=== PATIENT | female | born 1960 | race Caucasian/White ===

== ENCOUNTER 2019-09-09 14:11 | Emergency (ER) | payer MEDICARE, SELFPAY ==
[2019-09-09] VITALS (35 sets, daily range): BP systolic 82–151; BP diastolic 49–116; PULSE 57–104; RESP 16–32; TEMP 36.3; O2SAT 87–100
[2019-09-09] MEDS: HYDROmorphone 2 MG/ML VIAL ×3 (14:50→16:30)
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
[2019-09-09] MEDS: Normal Saline 1,000 ML 1000 ML IV ×2 (15:00→17:00)
[2019-09-09 15:23] LABS: Abs Immature Grans 0.02 k/cumm (0.0-0.09); Absolute Basophil Count 0.06 k/cumm (0.0-0.2); Absolute Eosinophil Count 0.06 k/cumm (0.0-0.7); Absolute Lymphocyte Count 2.42 k/cumm (1.2-3.4); Absolute Monocyte Count 0.72 k/cumm (0.11-0.7); Absolute Neutrophil Count 6.23 k/cumm (1.2-6.7); Basophils % 0.6; Eosinophils % 0.6; HCT 42.7 % (36.0-46.0); HGB 14.4 g/dL (12.0-15.5); Immature Grans % 0.2 %; Lymphocytes % 25.4; Mean Corp. HGB Concentration 33.7 g/dL (32.0-36.0); Mean Corpuscular Hemoglobin 28.8 pg (27.0-33.0); Mean Corpuscular Volume 85.4 fL (80-95); Mean Platelet Volume 10.6 fL (8.0-11.0); Monocytes % 7.6; Neutrophils % 65.6; Platelet Count 349 x1000/uL (130-400); RBC Distribution Width 13.2 % (11.7-14.6); White Blood Cell Count 9.51 k/cumm (4.4-10.8)
[2019-09-09 15:35] LABS: ALT 18 U/L (14-59); AST 19 U/L (15-37); Albumin 4.9 g/dL (3.4-5.0); Alkaline Phosphatase 93 U/L (46-116); Anion Gap 14.9 mmol/L (3-11); BUN 10 mg/dL (7-18); Bilirubin, Total 1.1 mg/dL (0.2-1.0); CO2 25.1 mmol/L (21.0-32.0); CREATININE 0.85 mg/dL (0.55-1.02); Calcium 9.4 mg/dL (8.5-10.1); Chloride 101 mmol/L (98-107); Glucose 91 mg/dL (74-106); Potassium 3.6 mmol/L (3.5-5.1); Sodium 141 mmol/L (136-145); Total Protein 8.7 g/dL (6.4-8.2)
[2019-09-09] MEDS: Omnipaque 350 MG/ML 100 ML BTL IJ (16:05)
[2019-09-09] MEDS: Normal Saline - Diluent 50 ML VIAL IV (16:06)
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
[2019-09-09] MEDS: Ondansetron 4 MG/2 ML VIAL (16:30)
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
--- NOTE | 2019-09-09 17:00 | DI.VRAD_ITS ---
PROCEDURE INFORMATION: Exam: XR Right Forearm Exam date and time: 09/09/2019 3:48 PM Age: 59 years old Clinical indication: Other: S/P fall, R/O acute fracture TECHNIQUE: Imaging protocol: XR Right forearm. Views: 2 views. COMPARISON: CR XR HUMERUS RT 09/09/2019 3:36 PM FINDINGS: Bones/joints: There is a curvilinear fragment adjacent to the distal humerus, radial aspect, on series 3, image 1. This may represent the sequela of older trauma or degenerative change. However, correlation with concern for acute avulsive injury in this region suggested. Soft tissues: No unusual soft tissue calcifications. IMPRESSION: 1. There is a curvilinear fragment adjacent to the distal humerus, radial aspect, on series 3, image 1. This may represent the sequela of older trauma or degenerative change. However, correlation with concern for acute avulsive injury in this region suggested. Dictated and Authenticated by: Zohreh Chisholm MD. Ordering:NATE Correa MD
[2019-09-09] MEDS: HYDROmorphone 2 MG/ML VIAL 0.5 MG IVP (17:15)
[2019-09-09] MEDS: ACETAMINOPHEN 1,000 MG/100 ML BTL 400 MG IVPB (17:15)
[2019-09-09] MEDS: Ondansetron 4 MG/2 ML VIAL IVP (17:15)
--- NOTE | 2019-09-09 18:37 | DI.VRAD_ITS ---
PROCEDURE INFORMATION: Exam: XR Right Elbow Exam date and time: 09/09/2019 6:21 PM Age: 59 years old Clinical indication: Other: Pain, tenderness TECHNIQUE: Imaging protocol: XR Right elbow. Views: 3 or more views. COMPARISON: CR XR FOREARM RT 09/09/2019 3:42 PM FINDINGS: Bones/joints: The previously noted curvilinear bony fragment along the distal humerus, radial aspect, is not appreciated on this study which may be secondary to differences in positioning. No displaced fracture identified. Series 2, image 1 demonstrates linear lucencies in the distal humerus, ulnar epicondylar region, which are favored to be related to overlying clothing artifact. However, correlation with concern for fracture in this region suggested. Soft tissues: No posterior fat pad sign is seen. There is an up lifted appearance to the anterior fat pad for which an effusion is possible. No unusual soft tissue calcifications. IMPRESSION: 1. No displaced fracture identified. Series 2, image 1 demonstrates linear lucencies in the distal humerus, ulnar epicondylar region, which are favored to be related to overlying clothing artifact. However, correlation with concern for fracture in this region suggested. 2.The previously noted curvilinear bony fragment along the distal humerus, radial aspect, is not appreciated on this study which may be secondary to differences in positioning. 3. No posterior fat pad sign is seen. There is an uplifted appearance to the anterior fat pad for which an effusion is possible. If symptoms remain concerning, CT scan would be beneficial. Dictated and Authenticated by: Zohreh Chisholm MD. Ordering:PATRICIA Alicea MD
[2019-09-09] MEDS: Ketorolac 30 MG/ML VIAL (18:40)
[2019-09-09] MEDS: Lidocaine 5% Patch 1 PATCH TP (19:18)
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
== END 2019-09-09 20:20 | disposition home or self-care (01) ==
PROVIDERS: Physician Assistant; Emergency Provider Student in an Organized Health Care Education/Training Program; PCP Internal Medicine
DX: S42.291A Other displaced fracture of upper end of right humerus, initial encounter for closed fracture (principal); X58.XXXA Exposure to other specified factors, initial encounter; M25.521 Pain in right elbow; V86.52XA Driver of snowmobile injured in nontraffic accident, initial encounter; Y93.29 Activity, other involving ice and snow; R55 Syncope and collapse
CPT/HCPCS: 36415; 74177; 80053; 93005; 96361; 96365; 96375; 96376; 99285; 70450; 71260; 72125; 73060; 73080; 73090; 73200; 85025; 93010; J0131; J1885; J2405; J3490; L0172; L3650